=== PATIENT | female | born 1985 | race Caucasian/White ===

== ENCOUNTER → 2019-02-24 | Emergency (ER) | payer MEDICAID, OTHER ==
[~2019-02-24] VITALS: Ht 162.6 cm; Wt 63.5 kg
[~2019-02-24] MED LIST: FAMOTIDINE 20 MG TAB PO ONE; HYDR-4011 PO; IBUPROFEN 600 MG TAB PO ONE; LIDOCAINE/MYLANTA 40 ML BTL PO ONE; ONDA4TAB14 PO; UDMYL PO
[2019-02-24 00:31] VITALS: BP 121/59; PULSE 75; RESP 20; Ht 162.6 cm; Wt 63.5 kg
--- NOTE | 2019-02-24 04:24 | ERD ---
ER Documentation Chief Complaint Chief Complaint BIB FAMILY W/ C/O RT LOWER ABDOMINAL PAIN SINCE 1600 HPI 33-year-old female with history of hyperlipidemia and nasal allergy presents right lower quadrant abdominal pain x1 day. Pain is noted to be 8 out of 10, described as a dull sensation. There is pain radiation to the back. The pain is worse with walking. There is associated nausea. Denies fevers or chills. Denies chest pain or shortness of breath. Denies vomiting or diarrhea. No other modifying factors noted, no treatments tried at home. ROS All systems reviewed and are negative except as per history of present illness. Medications Home Meds Active Scripts Ondansetron (Ondansetron Odt) 4 Mg Tab.rapdis, 4 MG PO Q6H PRN for NAUSEA AND/OR VOMITING, #15 TAB Prov:LYDIA SORIANO DO 02/24/19 Hydrocodone/Acetaminophen ([place] 5-325 Tablet) 1 Each Tablet, 1 TAB PO Q6H PRN for PAIN, #10 TAB Prov:LYDIA SORIANO DO 02/24/19 Magaldrate/Simethicone* (Mag-Al Plus Suspension*) 30 Ml Oral.susp, 30 ML PO Q6H PRN for GASTROINTESTINAL UPSET, #1 BOTTLE Prov:LYDIA SORIANO DO 02/24/19 Allergies Allergies: Coded Allergies: No Known Allergy (Verified Allergy, Mild, 12/16/08) PMhx/Soc History of Surgery: Yes (Appendectomy) Hx Cardiac Disorders: Yes (HLD) Hx Alcohol Use: No Hx Substance Use: No Hx Tobacco Use: No Smoking Status: Never smoker FmHx Family History: No coronary disease Physical Exam Vitals Vital Signs Date Temp Pulse Resp B/P (MAP) Pulse Ox O2 O2 Flow FiO2 Time Delivery Rate 02/24/19 97.4 75 20 121/59 99 00:31 (79) Physical Exam Const: No acute distress Resp: Clear to auscultation bilaterally Cardio: Regular rate and rhythm, no murmurs Abd: Soft, non distended. Normal bowel sounds, there is some mild right lower quadrant abdominal tenderness palpation, no Hartley sign, no rebound or guarding noted Skin: No petechiae or rashes Back: No midline or flank tenderness Ext: No cyanosis, or edema Neur: Awake and alert Psych: Normal Mood and Affect Results 24 hrs Laboratory Tests Test 02/24/19 01:21 02/24/19 01:29 02/24/19 02:14 Bedside Urine pH (LAB) 5.5 Bedside Urine Protein (LAB) Negative Bedside Urine Glucose (UA) Negative Bedside Urine Ketones (LAB) Negative Bedside Urine Blood Negative Bedside Urine Nitrite (LAB) Negative Bedside Urine Leukocyte Esterase (L Negative POC Beta HCG, Qualitative NEGATIVE White Blood Count 8.5 10^3/ul Red Blood Count 4.51 10^6/ul Hemoglobin 13.1 g/dl Hematocrit 39.6 % Mean Corpuscular Volume 87.8 fl Mean Corpuscular Hemoglobin 29.0 pg Mean Corpuscular Hemoglobin Concent 33.1 g/dl Red Cell Distribution Width 11.3 % Platelet Count 265 10^3/UL Mean Platelet Volume 9.3 fl Immature Granulocytes % 0.100 % Neutrophils % 36.9 % Lymphocytes % 52.9 % Monocytes % 7.6 % Eosinophils % 1.8 % Basophils % 0.7 % Nucleated Red Blood Cells % 0.0 /100WBC Immature Granulocytes # 0.010 10^3/ul Neutrophils # 3.1 10^3/ul Lymphocytes # 4.5 10^3/ul Monocytes # 0.7 10^3/ul Eosinophils # 0.2 10^3/ul Basophils # 0.1 10^3/ul Nucleated Red Blood Cells # 0.0 10^3/ul Urine Color YELLOW Urine Clarity CLEAR Urine pH 5.0 Urine Specific [place] 1.014 Urine Ketones TRACE mg/dL Urine Nitrite NEGATIVE mg/dL Urine Bilirubin NEGATIVE mg/dL Urine Urobilinogen NEGATIVE mg/dL Urine Leukocyte Esterase NEGATIVE Nayeli/ul Urine Hemoglobin NEGATIVE mg/dL Urine Glucose NEGATIVE mg/dL Urine Total Protein NEGATIVE mg/dl Sodium Level 143 mmol/L Potassium Level 3.8 mmol/L Chloride Level 109 mmol/L Carbon Dioxide Level 23 mmol/L Anion Gap 11 Blood Urea Nitrogen 8 mg/dl Creatinine 0.61 mg/dl Est Glomerular Filtrat Rate mL/min > 60 mL/min Glucose Level 100 mg/dl Calcium Level 9.6 mg/dl Total Bilirubin 0.4 mg/dl Direct Bilirubin 0.00 mg/dl Indirect Bilirubin 0.4 mg/dl Aspartate Amino Transf (AST/SGOT) 21 IU/L Alanine Aminotransferase (ALT/SGPT) 22 IU/L Alkaline Phosphatase 88 IU/L Total Protein 7.6 g/dl Albumin 4.5 g/dl Globulin 3.10 g/dl Albumin/Globulin Ratio 1.45 Lipase 102 U/L Current Medications Medications Dose Sig/Alie Start Time Status Last (Trade) Ordered Route PRN Stop Time Admin Dose Reason Admin 40 ml ONCE ONCE 02/24/19 DC 02/24/19 Miscellaneous PO 02:00 02/24/19 02:32 Medication 02:03 (Gi Cocktail (2)) Famotidine 20 mg ONCE ONCE 02/24/19 DC 02/24/19 (Pepcid) PO 02:00 02/24/19 02:32 02:03 Ibuprofen 600 mg ONCE ONCE 02/24/19 DC 02/24/19 (Motrin) PO 02:00 02/24/19 02:32 02:03 Procedures/MDM Medical Decision Making: Differential diagnosis includes but not limited to acute gastritis, acute gastroenteritis, cholecystitis, pancreatitis, nephrolithiasis, pyelonephritis Patient appeared well on physical exam. Nontoxic appearing. There is some tenderness palpation of the right lower quadrant. There is low suspicion for appendicitis given that patient had her appendix removed in the past. ED course: Patient was given GI cocktail, Pepcid, Motrin. Symptoms improved with treatment. Labs: CBC showed no severe anemia, no elevated WBC to suggest infection CMP showed no electrolyte abnormalities, there was normal kidney and liver function Lipase was normal Urine was negative UA was negative for infection Imaging: Abdominal US unremarkable, no gallbladder stones noted. Patient's abdominal symptoms have stabilized while in the department. No evidence of severe dehydration, sepsis, or surgical abdomen Extensive discussion with family and patient that occult disease cannot be ruled out. 8 hour recheck for repeat abdominal exam is planned Prescription(s): Patient given prescription for supportive medications, was given low-dose short course of [place] Patient advised to follow up with PCP in 1-2 days. Patient advised to return to ED for new or worsening symptoms. Patient stable on discharge from the ED. The patient has been prescribed [place] during this encounter. The patient has been warned about the use of narcotics. The patient should not drive or operate heavy machinery while taking this medication. The patient was also warned about the addictive properties of narcotic medications. Narcan prescription was NOT provided given the following criteria 1. No more than 5 tablets of [place] 10 mg or 10 tablets of [place] 5 mg were prescribed. 2. Concomitant opiate and benzodiazepine prescriptions were not provided. 3. There is no obvious evidence of prior history of opiate abuse or overdose. Disclaimer: Inadvertent spelling and grammatical errors are likely due to EHR/dictation software use and do not reflect on the overall quality of patient care. Also, please note that the electronic time recorded on this note does not necessarily reflect the actual time of the patient encounter. Departure Patient Instructions: Abdominal Pain, Unknown Cause, (Female) Referrals: [facility] YOU HAVE RECEIVED A MEDICAL SCREENING EXAM AND THE RESULTS INDICATE THAT YOU DO NOT HAVE A CONDITION THAT REQUIRES URGENT TREATMENT IN THE EMERGENCY DEPARTMENT. FURTHER EVALUATION AND TREATMENT OF YOUR CONDITION CAN WAIT UNTIL YOU ARE SEEN IN YOUR DOCTORS OFFICE WITHIN THE NEXT 1-2 DAYS. IT IS YOUR RESPONSIBILITY TO MAKE AN APPOINTMENT FOR FOLOW-UP CARE. IF YOU HAVE A PRIMARY DOCTOR --you should call your primary doctor and schedule an appointment IF YOU DO NOT HAVE A PRIMARY DOCTOR YOU CAN CALL OUR PHYSICIAN REFERRAL HOTLINE AT IF YOU CAN NOT AFFORD TO SEE A PHYSICIAN YOU CAN CHOSE FROM THE FOLLOWING [facility] [address] [facility] [address] [facility] [address] [facility] [address] [facility] [address] [facility]. [address] Additional Instructions: Call your primary care doctor TOMORROW for an appointment during the next 1-2 days.See the doctor sooner or return here if your condition worsens before your appointment time. Return to ER if pain does not improve. LYDIA SORIANO DO Feb 24, 2019 04:24
== END | disposition home or self-care (01) ==
LOC: FTE 00:26
DX: R10.30 Lower abdominal pain, unspecified (principal)
CPT/HCPCS: 36415; 76705; 80053; 81003; 81025; 83690; 85025; Z7502; Z7610